=== PATIENT | female | born 1990 | race Caucasian/White ===

== ENCOUNTER 2017-04-04 11:04 | Emergency (ER) | payer OTHER ==
[~2017-04-04 11:04] MED LIST: DOXY100T PO; SULF1TAB24 PO
[2017-04-04] MEDS ORDERED: IV NORMAL SALINE 1,000ML 1,000 ML IV SCH (11:59)
[2017-04-04 12:25] LABS: COLOR,URINE YELLOW
[2017-04-04 12:26] LABS: BACTERIA,URINE MANY /HPF (0-FEW); BARBITURATES NEG (NEG); BENZODIAZEPINES NEG (NEG); BILIRUBIN,URINE NEG (NEG); CANNABINOIDS NEG (NEG); CLARITY,URINE HAZY; COCAINE NEG (NEG); GLUCOSE,URINE NEG (NEG); METHADONE NEG (NEG); NITRITE,URINE NEG (NEG); OPIATES NEG (NEG); PHENCYCLIDINE NEG (NEG); RBC,URINE 0 /HPF (0-2); UROBILINOGEN,URINE 0.2 mg/dL (0.2 mg/dL); WBC,URINE >40 /HPF (0-4)
[2017-04-04 12:27] LABS: AMPHETAMINE/METHAMPHETAMINE NEG (NEG); SQUAMOUS EPITHELIAL CELL,UR MOD /LPF
[2017-04-04] MEDS ORDERED: KETOROLAC 30 MG/ML VIAL. IV ONE (12:30)
--- NOTE | 2017-04-04 12:32 | RAD ---
CT of the abdomen and pelvis without contrast, 04/04/2017: History: Right-sided pain, previous ovarian cyst Noncontrast scans were obtained as requested. The unopacified liver is unremarkable. No gallbladder abnormality is seen. The pancreas shows no abnormality. The spleen is of normal size. The unopacified kidneys show no abnormality. No adrenal abnormality is detected. The uterus and ovaries are unremarkable. Small retroperitoneal and mesenteric lymph nodes are seen without definite pathologic enlargement. No pelvic adenopathy is seen. The bowel loops are not dilated. The appendix is visualized and shows no abnormality. No free fluid or free air is evident in the abdomen or pelvis. IMPRESSION: No acute abdominal or pelvic abnormality is detected. PQRS Compliance Statement: One or more of the following individualized dose reduction techniques were utilized for this examination: 1. Automated exposure control 2. Adjustment of the mA and/or kV according to patient size 3. Use of iterative reconstruction technique
--- NOTE | 2017-04-04 12:44 | PHYS DOC ---
General Chief Complaint: ABDOMINAL PAIN Stated Complaint: ABD PAIN Time Seen by MD: 11:32 Source: patient Exam Limitations: no limitations Problems: History of Present Illness Initial Comments Patient is a 26-year-old female who comes to the ED complaining of right-sided abdominal pain. Patient states that for the past 2 days she has had worsening right sided/right lower quadrant abdominal pain. She says she has history of right-sided ovarian cyst which had to be removed. She describes mild diarrhea for the past 2 days, 4 watery stools yesterday and 2 this morning. She seen no blood in her stools she's had some nausea but no vomiting. She complains of right sided and right lower quadrant abdominal pain 10 out of 10 described as sharp and stabby no exacerbating or alleviating factors are known. Patient has had decreased appetite and says she has had nothing to eat today. She's had no fever chills sweats or myalgias. She said she had a doctor appointment scheduled for 3 PM today but felt too bad to wait that long so she decided to come in. On ED arrival patient is afebrile 98.5, 62, 16, 116/72, 95% on room air. The patient appears to be waiting patiently and comfortably without pained expression. Timing/Duration: 24 hours Severity: severe Modifying Factors: improves with other Associated Symptoms: loss of appetite, malaise, other Allergies: Coded Allergies: morphine (Verified Allergy, Intermediate, gi problems, 05/31/14) hydrocodone (Verified Adverse Reaction, Intermediate, gi problems, HIVES, 05/25/15) Past Medical History Medical History: other (right-sided ovarian cyst) Surgical History: other (ovarian cyst) Family History Significant Family History: no pertinent family hx Social History Smoker: cigarettes Alcohol: occasionally Drugs: none Review of Systems Constitutional: denies chills, denies diaphoresis, denies fever, denies malaise Respiratory: denies cough, denies shortness of breath Cardiovascular: denies chest pain, denies palpitations Gastrointestinal: see HPI, abdominal pain, denies constipation, diarrhea, denies nausea, denies vomiting Genitourinary: see HPI Musculoskeletal: denies back pain, denies joint swelling, denies neck pain Psychiatric/Neurological: denies headache, denies numbness, denies paresthesia Physical Exam General Appearance: no apparent distress, obese Eyes: bilateral eye normal inspection, bilateral eye PERRL, bilateral eye EOMI Ear, Nose, Throat: hearing grossly normal, normal ENT inspection Neck: non-tender, supple Respiratory: normal breath sounds, no respiratory distress Cardiovascular: normal peripheral pulses, regular rate, rhythm Gastrointestinal: soft (right lower quadrant tenderness to palpation no rebound guarding or palpable masses, negative McBurney bowel sounds are normal) Rectal: deferred Back: no CVA tenderness, no vertebral tenderness Extremities: non-tender, normal inspection Neurologic/Psychiatric: medical practice manager II-XII nml as tested, no motor/sensory deficits, alert, normal mood/affect, oriented x 3 Skin: normal color, warm/dry Orders, Labs, Meds PATIENT: FORTINO BOWEN ACCOUNT: [id number] : 1990 LOCATION: ER AGE: 26 SEX: F EXAM STATUS: PRE ER ORD. PHYSICIAN: QUIRINO DOS SANTOS DO REASON: RLQ pain, anorexia, h/o ovarian cyst PROCEDURE: CT ABDOMEN PELVIS WO CONTRAST CT of the abdomen and pelvis without contrast, 04/04/2017: History: Right-sided pain, previous ovarian cyst Noncontrast scans were obtained as requested. The unopacified liver is unremarkable. No gallbladder abnormality is seen. The pancreas shows no abnormality. The spleen is of normal size. The unopacified kidneys show no abnormality. No adrenal abnormality is detected. The uterus and ovaries are unremarkable. Small retroperitoneal and mesenteric lymph nodes are seen without definite pathologic enlargement. No pelvic adenopathy is seen. The bowel loops are not dilated. The appendix is visualized and shows no abnormality. No free fluid or free air is evident in the abdomen or pelvis. IMPRESSION: No acute abdominal or pelvic abnormality is detected. PQRS Compliance Statement: One or more of the following individualized dose reduction techniques were utilized for this examination: 1. Automated exposure control 2. Adjustment of the mA and/or kV according to patient size 3. Use of iterative reconstruction technique DICTATED AND SIGNED BY: NICOLE HIDALGO MD DATE: 04/04/17 1224 CC: PCP,NO; QUIRINO DOS SANTOS DO ~ 1242: CT is resulted and normal. Urinalysis with squamous epithelial contamination but is convincing with greater than 40 white blood cells and moderate leukocyte esterase. 1252: Time in the department 1 hour 49 minutes. No labs are resulted or yet to be submitted to the lab, patient will likely have prolonged ED course due to laboratory delay. 1332: The remainder of her labs are unremarkable. 26-year-old female with right -sided abdominal pain normal vital signs unremarkable laboratory and CT evaluation. Positive findings include urinary tract infection will treat as such see departure. Departure Time of Disposition: 13:33 Disposition: 01 HOME, SELF-CARE Diagnosis: urinary tract infection, abdominal discomfort, tob Condition: GOOD Patient Instructions: Smoking Cessation, Urinary Tract Infection, [id number] Additional Instructions: Your emergency department workup was overall reassuring. CT evaluation of the abdomen and pelvis revealed no acute abnormal findings. Lab studies were reassuring urinalysis contained products of infection. Your abdominal discomfort is likely related multi-factorial in nature resulting from both urinary tract infection and probable viral gastroenteritis. Off work through April 07. Rest activity as tolerated. Stop smoking, seek medical assistance if necessary. Aggressive hydration with Gatorade or water. [id number] Tylenol and/or ibuprofen as needed. Prescription: doxycycline, pyridium, dicyclomine, take as directed. Follow up with your doctor in 10-14 days for recheck and urine culture results. Return to the ED with new or changing symptoms. QUIRINO DOS SANTOS DO Apr 04, 2017 12:43
[2017-04-04 13:11] LABS: BASO # 0.1 x10^3/uL (0.0-0.2); BASO % 1 % (0-3); EOS # 0.3 x10^3/uL (0.0-0.7); EOS % 3 % (0-3); HEMATOCRIT 42.6 % (36.0-47.0); HEMOGLOBIN 14.1 g/dL (12.0-15.5); LYMPH # 3.2 x10^3/uL (1.0-4.8); LYMPH % 34 % (24-48); MEAN CORPUSCULAR HEMOGLOBIN 28 pg (25-35); MEAN CORPUSCULAR HGB CONC 33 g/dL (31-37); MEAN CORPUSCULAR VOLUME 85 fL (79-100); MONO # 0.6 x10^3/uL (0.0-1.1); MONO % 6 % (0-9); NEUT # 5.5 x10^3uL (1.8-7.7); NEUT % 57 % (31-73); PLATELET COUNT 352 x10^3/uL (140-400); RED CELL DISTRIBUTION WIDTH 14.4 % (11.5-14.5); WHITE BLOOD COUNT 9.6 x10^3/uL (4.0-11.0)
[2017-04-04 13:26] LABS: ALBUMIN 3.4 g/dL (3.4-5.0); ALBUMIN/GLOBULIN RATIO 0.8 (1.0-1.7); CALCIUM 8.6 mg/dL (8.5-10.1); CREATININE 0.8 mg/dL (0.6-1.0); GFR 87.4; POTASSIUM 3.9 mmol/L (3.5-5.1); TOTAL BILIRUBIN 0.5 mg/dL (0.2-1.0); TOTAL PROTEIN 7.5 g/dL (6.4-8.2)
[2017-04-04 13:50] VITALS: BP 130/97
== END 2017-04-04 13:50 | disposition home or self-care (01) ==
LOC: ER 11:04
DX: N39.0 Urinary tract infection, site not specified (principal); F17.210 Nicotine dependence, cigarettes, uncomplicated; Z88.5 Allergy status to narcotic agent; Z88.6 Allergy status to analgesic agent
CPT/HCPCS: 36415; 74176; 80053; 80305; 80320; 81001; 81025; 83690; 85027; 87086; 96361; 96374; 99285; J1885; G0481; J7030

== ENCOUNTER 2017-05-16 04:10 | Emergency (ER) | payer OTHER ==
[~2017-05-16] VITALS: Ht 162.6 cm; Wt 117.9 kg
[2017-05-16 04:10] VITALS: BP 109/64
--- NOTE | 2017-05-16 04:34 | PHYS DOC ---
Past History Past Medical History: UTI Past Surgical History: , Other Smoking: Cigarettes Alcohol Use: Occasionally Drug Use: None Adult General Chief Complaint Chief Complaint: SORE THROAT HPI HPI Patient is a 26 year old female who presents with sore throat. Started yesterday. Father was diagnosed with strep throat yesterday. She has pain with swallowing; no drooling. No fever. No travel. No cough. Bite to her right wrist that is now red and painful. No streaking. Review of Systems Review of Systems Constitutional: Denies fever or chills Eyes: Denies change in visual acuity, redness, or eye pain HENT: Denies nasal congestion. Positive sore throat Respiratory: Denies cough or shortness of breath GI: Denies abdominal pain, nausea, vomiting, bloody stools or diarrhea Integument: Denies rash or skin lesions. Bite to right wrist. Neurologic: Denies headache, focal weakness or sensory changes Allergies Allergies Allergies Coded Allergies Type Severity Reaction Last Updated Verified morphine Allergy Intermediate gi problems 05/31/14 Yes hydrocodone Adverse Reaction Intermediate gi problems, HIVES 05/25/15 Yes Physical Exam Physical Exam Constitutional: Well developed, well nourished, no acute distress, non-toxic appearance. HENT: Normocephalic, atraumatic, bilateral external ears normal, oropharynx moist, nose normal. Posterior pharynx erythematous; no drooling. Eyes: PERRLA, EOMI, conjunctiva normal, no discharge. Neck: Normal range of motion, no tenderness, supple, no stridor. Cardiovascular:Heart rate regular rhythm, no murmur Lungs & Thorax: Bilateral breath sounds clear to auscultation Abdomen: Bowel sounds normal, soft, no tenderness, no masses, no pulsatile masses. Skin: Warm, dry, no erythema, no rash. Small red raised lesion to right wrist. No lymphangitis. No fluctuance. Extremities: No tenderness, no cyanosis, no clubbing, ROM intact, no edema. Neurologic: Alert and oriented X 3, normal motor function, normal sensory function, no focal deficits noted. Current Patient Data Vital Signs Reviewed Course & Med Decision Making Course & Med Decision Making Due to exposure and tonsillar erythema and enlargement will treat. Dosed with amoxicillin here. Dragon Disclaimer Dragon Disclaimer This chart was dictated in whole or in part using Voice Recognition software in a busy, high-work load, and often noisy Emergency Department environment. It may contain unintended and wholly unrecognized errors or omissions. Departure Departure: Impression: Primary Impression: Pharyngitis, acute Disposition: 01 HOME, SELF-CARE Condition: GOOD Referrals: PCP,NO (PCP) Patient Instructions: Sore Throat Scripts Methylprednisolone (MEDROL) 4 Mg Tab.ds.pk 1 PKG PO UD, #1 PKG Prov: JOSE TANNER MD 05/16/17 Amoxicillin (AMOXICILLIN) 500 Mg Capsule 1 CAP PO TID, #30 CAP Prov: JOSE TANNER MD 05/16/17 JOSE TANNER MD May 16, 2017 04:34
[2017-05-16] MEDS ORDERED: METH4TAB2 PO (04:42)
[2017-05-16] MEDS ORDERED: AMOX500C PO (04:42)
[2017-05-16] MEDS ORDERED: AMOXICILLIN 500 MG CAPSULE PO ONE (05:00)
== END 2017-05-16 04:54 | disposition home or self-care (01) ==
LOC: ER 04:10
DX: J02.9 Acute pharyngitis, unspecified (principal); F17.210 Nicotine dependence, cigarettes, uncomplicated; Z87.440 Personal history of urinary (tract) infections; Z88.5 Allergy status to narcotic agent
CPT/HCPCS: 99283

== ENCOUNTER → 2017-07-14 | Outpatient (CLI) | payer OTHER ==
[~2017-07-14] MED LIST changes: +AMOX500C PO; +METH4TAB2 PO
--- NOTE | 2017-07-14 15:38 | RAD ---
Indication acute shoulder pain. No history of injury. Internally and externally rotated views of the right shoulder as well as a Y view were obtained. No bony abnormality is seen
== END | disposition home or self-care (01) ==
LOC: DXRADRC 15:22
PROVIDERS: ATTEND Nurse Practitioner Family
DX: M25.512 Pain in left shoulder (principal)
CPT/HCPCS: 73030

== ENCOUNTER → 2017-11-19 | Outpatient (CLI) | payer OTHER ==
--- NOTE | 2017-11-19 14:27 | RAD ---
Left shoulder, 3 views, 11/19/2017: History: Shoulder pain, injury No fracture or dislocation is identified. No significant arthritic change is seen. IMPRESSION: No acute left shoulder abnormality is detected.
== END | disposition home or self-care (01) ==
LOC: PMG 12:26
PROVIDERS: ATTEND Physician Assistant
DX: M25.512 Pain in left shoulder (principal)
CPT/HCPCS: 73030

== ENCOUNTER 2017-12-10 18:39 | Emergency (ER) | payer OTHER ==
[~2017-12-10] VITALS: Ht 162.6 cm; Wt 117.9 kg
--- NOTE | 2017-12-10 19:33 | PHYS DOC ---
Past History Past Medical History: Ovarian Cyst Past Surgical History: Smoking: Cigarettes Alcohol Use: Occasionally Drug Use: None Adult General Chief Complaint Chief Complaint: ANKLE PROBLEM HPI HPI 27-year-old female patient states she lost her balance and fell from 3 stairs and twisted her right ankle outward was able to bear weight. Patient rated her pain 8/10 in medial and lateral malleolus and denies other injuries and loss of consciousness or focal neuro deficit. And does not want to have pain medication in ER. Review of Systems Review of Systems Constitutional: Denies fever or chills [] Eyes: Denies change in visual acuity, redness, or eye pain [] HENT: Denies nasal congestion or sore throat [] Respiratory: Denies cough or shortness of breath [] Cardiovascular: No additional information not addressed in HPI [] GI: Denies abdominal pain, nausea, vomiting, bloody stools or diarrhea [] : Denies dysuria or hematuria [] Musculoskeletal: Denies back pain , reports joint pain [] Integument: Denies rash or skin lesions [] Neurologic: Denies headache, focal weakness or sensory changes [] Endocrine: Denies polyuria or polydipsia [] All other systems were reviewed and found to be within normal limits, except as documented in this note. Allergies Allergies Allergies Coded Allergies Type Severity Reaction Last Updated Verified morphine Allergy Intermediate gi problems 05/31/14 Yes hydrocodone Adverse Reaction Intermediate gi problems, HIVES 05/25/15 Yes Physical Exam Physical Exam Constitutional: Well developed, well nourished, mild stress, non-toxic appearance. [] HENT: Normocephalic, atraumatic, bilateral external ears normal, oropharynx moist, no oral exudates, nose normal. [] Eyes: PERRLA, EOMI, conjunctiva normal, no discharge. [] Neck: Normal range of motion, no tenderness, supple, no stridor. [] Cardiovascular:Heart rate regular rhythm, no murmur [] Lungs & Thorax: Bilateral breath sounds clear to auscultation [] Back: No tenderness, no CVA tenderness. [] Extremities: Right ankle with no deformity, mild edema and tenderness in medial and lateral malleolus Neurologic: Alert and oriented X 3, normal motor function, normal sensory function, no focal deficits noted. [] Psychologic: Affect normal, judgement normal, mood normal. [] EKG EKG [] Radiology/Procedures Radiology/Procedures [] Course & Med Decision Making Course & Med Decision Making Pertinent Imaging studies reviewed. (See chart for details) Evaluation of patient in ER showed 27-year-old female patient with injury to right ankle without fracture. Plan to apply [place] wrap and gel cast and instruction to elevate her lower extremity. I've spoken with the patient and/or caregivers. I've explained the patient's condition, diagnosis and treatment plan based on information available to me at this time. I've answered the patient's and/or caregivers questions and addressed any concerns. The patient and/or caregivers have a good understanding the patient's diagnosis, condition and treatment plan as can be expected at this point. Vital signs have been stabilized. The patient's condition is stable for discharge from the emergency department. The patient will pursue further outpatient evaluation with her primary care provider or other designated consulting physician as outlined in the discharge instructions. Patient and/or caregivers are agreeable to this plan of care and follow-up instructions have been explained in detail. The patient and/or caregivers have received these instructions in written format and expressed understanding of these discharge instructions. The patient and her caregivers are aware that if any significant change in condition or worsening of symptoms should prompt him to immediately return to this of the closest emergency department. If an emergent department is not readily available I would encourage him to call 911.[] Dragon Disclaimer Dragon Disclaimer This electronic medical record was generated, in whole or in part, using a voice recognition dictation system. Departure Departure: Impression: Primary Impression: Right ankle sprain Additional Impressions: Tobacco abuse Tobacco abuse counseling Disposition: HOME, SELF-CARE (At 1950) Condition: STABLE Referrals: LOUIS MCALLISTER (PCP) Patient Instructions: Ankle Sprain, Smoking Cessation, Tips For Success Additional Instructions: Apply ice unaffected area Follow-up with your primary care physician in 3-5 days Return to ER if not getting better Scripts Ibuprofen (IBUPROFEN) 800 Mg Tablet 1 TAB PO TID, #30 TAB Prov: MINDY LANGSTON MD 12/10/17 Tramadol Hcl (ULTRAM) 50 Mg Tablet 50 MG PO PRN Q6HRS Y for PAIN, #14 TAB Prov: MINDY LANGSTON MD 12/10/17 Problem Qualifiers MINDY LANGSTON MD Dec 10, 2017 19:33
[2017-12-10] MEDS ORDERED: TRAM-48 PO (19:53)
[2017-12-10] MEDS ORDERED: IBUP800T19 PO (19:53)
[2017-12-10 20:15] VITALS: BP 103/79
--- NOTE | 2017-12-11 08:01 | RAD ---
3 views right ankle 12/10/2017 9:01 PM Indication: Right ankle injury following fall . Acute pain Comparison: None Findings: There is no fracture or dislocation identified. Articular surfaces are uninterrupted. Soft tissue edema surrounding the ankle appears to be present. Impression: No evidence of acute osseous abnormality
== END 2017-12-10 20:16 | disposition home or self-care (01) ==
LOC: ER 18:39
DX: S93.401A Sprain of unspecified ligament of right ankle, initial encounter (principal); W10.8XXA Fall (on) (from) other stairs and steps, initial encounter; Y93.89 Activity, other specified; Y99.8 Other external cause status; Y92.89 Other specified places as the place of occurrence of the external cause
CPT/HCPCS: 29515; 73610; 99284

== ENCOUNTER 2018-03-10 11:18 | Emergency (ER) | payer OTHER ==
[~2018-03-10] VITALS: Ht 162.6 cm; Wt 130.0 kg
[~2018-03-10 11:18] MED LIST changes: +IBUP800T19 PO; +TRAM-48 PO
[2018-03-10] MEDS ORDERED: IV NORMAL SALINE 1,000ML 1,000 ML IV SCH (11:34)
[2018-03-10] MEDS ORDERED: 0.9 % SODIUM CHLORIDE 10 ML DISP.SYRIN. IV PRN (11:45)
[2018-03-10] MEDS ORDERED: PROCHLORPERAZINE 10 MG/2 ML VIAL. IV ONE (12:00)
[2018-03-10] MEDS ORDERED: KETOROLAC 30 MG/ML VIAL. IV ONE (12:30)
[2018-03-10 12:37] LABS: BASO % 0 % (0-3); EOS # 0.4 x10^3/uL (0.0-0.7); EOS % 3 % (0-3); HEMATOCRIT 44.9 % (36.0-47.0); LYMPH # 1.4 x10^3/uL (1.0-4.8); LYMPH % 9 % (24-48); MEAN CORPUSCULAR HEMOGLOBIN 29 pg (25-35); MEAN CORPUSCULAR HGB CONC 33 g/dL (31-37); MEAN CORPUSCULAR VOLUME 86 fL (79-100); MONO # 0.9 x10^3/uL (0.0-1.1); MONO % 6 % (0-9); NEUT # 12.7 x10^3uL (1.8-7.7); NEUT % 83 % (31-73); PLATELET COUNT 388 x10^3/uL (140-400); RED BLOOD COUNT 5.23 x10^6/uL (3.50-5.40); RED CELL DISTRIBUTION WIDTH 13.8 % (11.5-14.5); WHITE BLOOD COUNT 15.4 x10^3/uL (4.0-11.0)
--- NOTE | 2018-03-10 12:49 | PHYS DOC ---
Past History Past Medical History: No Pertinent History Past Surgical History: Smoking: Cigarettes Additional Smoking Information: decreased from pack per day to 3 smokes per day Alcohol Use: None Drug Use: None Adult General Chief Complaint Chief Complaint: NAUSEA/VOMITING/[facility] HPI 27-year-old female patient complaining of episodes of nausea and vomiting and diarrhea for the last 10 days with lower abdominal pain. Patient stated she had more than 10 episodes of nonbloody diarrhea yesterday and several episodes of dry hives and a few episodes of vomiting. Patient complaining of lower abdominal cramping pain without radiation as a constant pain and rated her pain 9/10. Patient states she had sick contacts at home. Patient denies urinary symptoms, vaginal bleeding, , fever and chills. Review of Systems Review of Systems Constitutional: Denies fever or chills [] Eyes: Denies change in visual acuity, redness, or eye pain [] HENT: Denies nasal congestion or sore throat [] Respiratory: Denies cough or shortness of breath [] Cardiovascular: No additional information not addressed in HPI [] GI: Reports abdominal pain, nausea, vomiting, diarrhea [] : Denies dysuria or hematuria [] Musculoskeletal: Denies back pain or joint pain [] Integument: Denies rash or skin lesions [] Neurologic: Denies headache, focal weakness or sensory changes [] Endocrine: Denies polyuria or polydipsia [] All other systems were reviewed and found to be within normal limits, except as documented in this note. Current Medications Current Medications Current Medications Medications (Trade) Dose Ordered Sig/Rekha Start Time Stop Time Status Last Admin Dose Admin Ketorolac Tromethamine (Toradol) 30 mg 1X ONCE 03/10/18 12:30 03/10/18 12:31 DC Prochlorperazine Edisylate (Compazine) 10 mg 1X ONCE 03/10/18 12:00 03/10/18 12:01 DC Sodium Chloride (Normal Saline Flush) 10 ml QSHIFT PRN 03/10/18 11:45 Allergies Allergies Allergies Coded Allergies Type Severity Reaction Last Updated Verified morphine Allergy Intermediate gi problems 05/31/14 Yes hydrocodone Adverse Reaction Intermediate gi problems, HIVES 05/25/15 Yes Physical Exam Physical Exam Constitutional: Well developed, well nourished, mild distress, non-toxic appearance. [] HENT: Normocephalic, atraumatic, oropharynx moist Eyes: PERRLA, EOMI, conjunctiva normal, no discharge. [] Neck: Normal range of motion, no tenderness, supple, no stridor. [] Cardiovascular:Heart rate regular rhythm, no murmur [] Lungs & Thorax: Bilateral breath sounds clear to auscultation [] Abdomen: Bowel sounds normal, soft, no tenderness, no masses, lower abdominal guarding, no pulsatile masses. [] Skin: Warm, dry, no erythema, no rash. [] Back: No tenderness, no CVA tenderness. [] Extremities: No tenderness, no cyanosis, no clubbing, ROM intact, no edema. [] Neurologic: Alert and oriented X 3, normal motor function, normal sensory function, no focal deficits noted. [] Psychologic: Affect normal, judgement normal, mood normal. [] Current Patient Data Vital Signs Vital Signs Date Time Temp Pulse Resp B/P (MAP) Pulse Ox O2 Delivery O2 Flow Rate FiO2 03/10/18 11:25 98.3 99 16 98 Room Air Lab Results Laboratory Tests Test 03/10/18 12:25 White Blood Count 15.4 x10^3/uL (4.0-11.0) H Red Blood Count 5.23 x10^6/uL (3.50-5.40) Hemoglobin 15.0 g/dL (12.0-15.5) Hematocrit 44.9 % (36.0-47.0) Mean Corpuscular Volume 86 fL (79-100) Mean Corpuscular Hemoglobin 29 pg (25-35) Mean Corpuscular Hemoglobin Concent 33 g/dL (31-37) Red Cell Distribution Width 13.8 % (11.5-14.5) Platelet Count 388 x10^3/uL (140-400) Neutrophils (%) (Auto) 83 % (31-73) H Lymphocytes (%) (Auto) 9 % (24-48) L Monocytes (%) (Auto) 6 % (0-9) Eosinophils (%) (Auto) 3 % (0-3) Basophils (%) (Auto) 0 % (0-3) Neutrophils # (Auto) 12.7 x10^3uL (1.8-7.7) H Lymphocytes # (Auto) 1.4 x10^3/uL (1.0-4.8) Monocytes # (Auto) 0.9 x10^3/uL (0.0-1.1) Eosinophils # (Auto) 0.4 x10^3/uL (0.0-0.7) Basophils # (Auto) 0.0 x10^3/uL (0.0-0.2) Platelet Estimate Pending EKG EKG [] Radiology/Procedures Radiology/Procedures [][address] [address] IMAGING REPORT Signed PATIENT: FORTINO BOWEN ACCOUNT: [id number] : 1990 LOCATION: ER AGE: 27 SEX: F EXAM STATUS: REG ER ORD. PHYSICIAN: MINDY LANGSTON MD REASON: nausea,vomiting and abdominal pain PROCEDURE: ABDOMEN LTD LIMITED ABDOMINAL ULTRASOUND History: Nausea, vomiting, abdominal pain. Comparison: CT abdomen pelvis April 04, 2017. Procedure: Transabdominal ultrasound images are obtained. Findings: Visualized pancreas is unremarkable. Liver is increased in echogenicity. No focal hepatic masses are identified. Right hepatic lobe measures 18.4 cm in length. Gallbladder has an unremarkable appearance. Common bile duct measures normally at 4 mm in diameter. Right kidney measures 10.0 cm in length. There is no evidence of stone or hydronephrosis. Visualized IVC demonstrates normal caliber. Impression: 1. Echogenic, enlarged liver, compatible with fatty liver disease. 2. Otherwise, unremarkable right upper quadrant ultrasound. Electronically signed by: Harsh Chaudhry MD (03/10/2018 1:41 PM) [place] [id number] DICTATED AND SIGNED BY: HARSH CHAUDHRY MD DATE: 03/10/18 1336 CC: MINDY LANGSTON MD; LOUIS MCALLISTER ~ [address] [address] IMAGING REPORT Signed PATIENT: FORTINO BOWEN ACCOUNT: [id number] : 1990 LOCATION: ER AGE: 27 SEX: F EXAM STATUS: REG ER ORD. PHYSICIAN: MINDY LANGSTON MD REASON: nausea and vomiting and diarrhea, abdominal pain, leukocytosis PROCEDURE: CT ABD PELV W/ IV CONTRST ONLY CT ABD PELV W/ IV CONTRST ONLY Indication: Omni 300, 75ml IV. N/V/D, abd pain, leukocytosis. Hx Exposure: One or more of the following individualized dose reduction techniques were utilized for this examination: 1. Automated exposure control 2. Adjustment of the mA and/or kV according to patient size 3. Use of iterative reconstruction technique. Comparison: April 04, 2017 Contrast: Intravenous contrast. No oral contrast per request. Lower thorax: Lung bases are clear. Pneumoperitoneum:No gross pneumoperitoneum. Liver: Unremarkable Spleen: Unremarkable Pancreas: Unremarkable Adrenals:No evidence of mass. Kidneys:Unremarkable Gallbladder: No calcified stone Aorta: Abdominal aorta is nonaneurysmal Lymph nodes: Small retroperitoneal, mesenteric and inguinal lymph nodes are identified, similar to the prior study. GI tract: No bowel obstruction. Appendix is normal. No acute colitis. Ascites: No gross ascites. Urinary bladder: Not opacified, but no apparent abnormality. No evidence of pelvic mass. Bones: Chronic and degenerative changes of the spine are redemonstrated. IMPRESSION: No acute findings in the abdomen or pelvis. Electronically signed by: Harsh Flood MD (03/10/2018 2:54 PM) [id number] DICTATED AND SIGNED BY: HARSH FLOOD MD DATE: 03/10/18 1445 CC: MINDY LANGSTON MD; LOUIS MCALLISTER ~ Course & Med Decision Making Course & Med Decision Making Pertinent Labs and Imaging studies reviewed. (See chart for details) Evaluation of patient in ER showed 27-year-old female patient with complaining of intermittent episodes of nausea and vomiting and diarrhea and lower abdominal pain for 10 days. Patient had unremarkable physical exam except for lower abdominal mild guarding. Labs was unremarkable except for white count of 15,000. Gallbladder ultrasound and CT of abdomen and pelvis was unremarkable except for fatty liver. Patient felt better after treatment in ER. Plan discharge patient home to diagnose of acute gastroenteritis. [] Dragon Disclaimer Dragon Disclaimer This electronic medical record was generated, in whole or in part, using a voice recognition dictation system. Departure Departure: Impression: Primary Impression: Gastroenteritis Additional Impressions: Tobacco abuse Tobacco abuse counseling Fatty liver Disposition: HOME, SELF-CARE (At 1511) Condition: IMPROVED Referrals: LOUIS MCALLISTER (PCP) Patient Instructions: Diarrhea, Diet for Diarrhea, Adult, Smoking Cessation Additional Instructions: Drink plenty of liquids Follow-up with your primary care physician in 3-5 days Return to ER if not getting better Scripts Ondansetron (ZOFRAN ODT) 4 Mg Tab.rapdis 1 TAB SL Q8HRS, #15 TAB Prov: MINDY LANGSTON MD 03/10/18 Sulfamethoxazole/Trimethoprim (BACTRIM DS TABLET) 1 Each Tablet 1 TAB PO BID, #14 TAB Prov: MINDY LANGSTON MD 03/10/18 Problem Qualifiers MINDY LANGSTON MD March 10, 2018 12:49
[2018-03-10 13:05] LABS: % BANDS 5 % (0-9); % EOS 2 % (0-5); % LYMPHS 14 % (24-48); % METAS 2 % (0-0); % MONOS 3 % (0-10); % SEGS 73 % (35-66); PLT ESTIMATE INCREASED (ADEQUATE)
[2018-03-10 13:07] LABS: TOXIC GRANULATION PRESENT; TOXIC VACUOLATION PRESENT
[2018-03-10 13:12] LABS: BILIRUBIN,URINE NEG (NEG); CLARITY,URINE CLOUDY; COLOR,URINE YELLOW; GLUCOSE,URINE NEG (NEG)
[2018-03-10 13:13] LABS: BACTERIA,URINE MOD /HPF (0-FEW); NITRITE,URINE NEG (NEG); RBC,URINE RARE /HPF (0-2); SQUAMOUS EPITHELIAL CELL,UR MOD /LPF; UROBILINOGEN,URINE 0.2 mg/dL (0.2 mg/dL); WBC,URINE OCC /HPF (0-4)
[2018-03-10 13:26] LABS: ALBUMIN 3.7 g/dL (3.4-5.0); ALBUMIN/GLOBULIN RATIO 0.8 (1.0-1.7); CALCIUM 8.9 mg/dL (8.5-10.1); CREATININE 0.9 mg/dL (0.6-1.0); GFR 75.7; POTASSIUM 3.7 mmol/L (3.5-5.1); TOTAL BILIRUBIN 0.8 mg/dL (0.2-1.0); TOTAL PROTEIN 8.1 g/dL (6.4-8.2)
--- NOTE | 2018-03-10 13:44 | RAD ---
LIMITED ABDOMINAL ULTRASOUND History: Nausea, vomiting, abdominal pain. Comparison: CT abdomen pelvis April 04, 2017. Procedure: Transabdominal ultrasound images are obtained. Findings: Visualized pancreas is unremarkable. Liver is increased in echogenicity. No focal hepatic masses are identified. Right hepatic lobe measures 18.4 cm in length. Gallbladder has an unremarkable appearance. Common bile duct measures normally at 4 mm in diameter. Right kidney measures 10.0 cm in length. There is no evidence of stone or hydronephrosis. Visualized IVC demonstrates normal caliber. Impression: 1. Echogenic, enlarged liver, compatible with fatty liver disease. 2. Otherwise, unremarkable right upper quadrant ultrasound. Electronically signed by: Harsh Brown MD (03/10/2018 1:41 PM) [place] [id number]
[2018-03-10] MEDS ORDERED: IOHEXOL 300 MG/ML 75 ML VIAL. IV ONE (14:30)
--- NOTE | 2018-03-10 14:57 | RAD ---
CT ABD PELV W/ IV CONTRST ONLY Indication: Omni 300, 75ml IV. N/V/D, abd pain, leukocytosis. Hx Exposure: One or more of the following individualized dose reduction techniques were utilized for this examination: 1. Automated exposure control 2. Adjustment of the mA and/or kV according to patient size 3. Use of iterative reconstruction technique. Comparison: April 04, 2017 Contrast: Intravenous contrast. No oral contrast per request. Lower thorax: Lung bases are clear. Pneumoperitoneum:No gross pneumoperitoneum. Liver: Unremarkable Spleen: Unremarkable Pancreas: Unremarkable Adrenals:No evidence of mass. Kidneys:Unremarkable Gallbladder: No calcified stone Aorta: Abdominal aorta is nonaneurysmal Lymph nodes: Small retroperitoneal, mesenteric and inguinal lymph nodes are identified, similar to the prior study. GI tract: No bowel obstruction. Appendix is normal. No acute colitis. Ascites: No gross ascites. Urinary bladder: Not opacified, but no apparent abnormality. No evidence of pelvic mass. Bones: Chronic and degenerative changes of the spine are redemonstrated. IMPRESSION: No acute findings in the abdomen or pelvis. Electronically signed by: Harsh Flood MD (03/10/2018 2:54 PM) [facility]
[2018-03-10] MEDS ORDERED: SULF1TAB24 PO (15:14)
[2018-03-10] MEDS ORDERED: ONDA4TAB10 SL (15:14)
[2018-03-10 15:26] VITALS: BP 133/74
== END 2018-03-10 15:33 | disposition home or self-care (01) ==
LOC: ER 11:18
DX: K52.9 Noninfective gastroenteritis and colitis, unspecified (principal); K76.0 Fatty (change of) liver, not elsewhere classified; F17.210 Nicotine dependence, cigarettes, uncomplicated; Z71.6 Tobacco abuse counseling; Z98.890 Other specified postprocedural states; Z88.5 Allergy status to narcotic agent
CPT/HCPCS: 36415; 74177; 76705; 80053; 81001; 81025; 83690; 85007; 85025; 87086; 96361; 96374; 96375; 99285; J0780; J1885; Q9967; J7030

== ENCOUNTER 2019-07-04 12:13 | Emergency (ER) | payer SELFPAY ==
[~2019-07-04] VITALS: Ht 162.6 cm; Wt 129.3 kg
[2019-07-04 12:13] VITALS: BP 131/74
[~2019-07-04 12:13] MED LIST changes: +ONDA4TAB10 SL
[2019-07-04] MEDS ORDERED: ALBU2.5V8 INH (12:34)
[2019-07-04] MEDS ORDERED: AZIT250T6 PO (12:34)
[2019-07-04] MEDS ORDERED: BENZ100C PO (12:34)
--- NOTE | 2019-07-04 12:38 | PHYS DOC ---
Past History Past Medical History: No Pertinent History Past Surgical History: Smoking: Cigarettes Alcohol Use: None Drug Use: None Adult General Chief Complaint Chief Complaint: COUGH HPI HPI Patient is a 28 yo f with cough ten days yellow sputum occasional blood tinged subj fever feeling worse feels hard to take deep breathe, goes into coughing fit no sharp pain feels tight when coughign Review of Systems Review of Systems Constitutional: Eyes: Denies change in visual acuity, redness, or eye pain [] HENT: Denies nasal congestion or sore throat [] Respiratory: Denies cough or shortness of breath [] Cardiovascular: : Denies dysuria or hematuria [] Neurologic: Denies headache, focal weakness or sensory changes [] Endocrine: Denies polyuria or polydipsia [] All other systems were reviewed and found to be within normal limits, except as documented in this note. Allergies Allergies Allergies Coded Allergies Type Severity Reaction Last Updated Verified morphine Allergy Intermediate gi problems 05/31/14 Yes hydrocodone Adverse Reaction Intermediate gi problems, HIVES 05/25/15 Yes Physical Exam Physical Exam Constitutional: Well developed, well nourished, no acute distress, non-toxic appearance. [] HENT: Normocephalic, atraumatic, bilateral external ears normal, oropharynx moist, no oral exudates, nose normal. [] Eyes: PERRLA, EOMI, conjunctiva normal, no discharge. [] Neck: Normal range of motion, no tenderness, supple, no stridor. [] Cardiovascular:Heart rate regular rhythm, no murmur [] Lungs & Thorax: Bilateral breath sounds clear to auscultation [] but reactive cough noted. Abdomen: Bowel sounds normal, soft, no tenderness, no masses, no pulsatile masses. [] Skin: Warm, dry, no erythema, no rash. [] Back: No tenderness, no CVA tenderness. Extremities: No tenderness, no cyanosis, no clubbing, ROM intact, no edema. [] Neurologic: Alert and oriented X 3, normal motor function, normal sensory function, no focal deficits noted. [] Psychologic: Affect normal, judgement normal, mood normal. [] Current Patient Data Vital Signs see nurses note bp 133, oxygenation normal EKG EKG [] Radiology/Procedures Radiology/Procedures [] Course & Med Decision Making Course & Med Decision Making Pertinent Labs and Imaging studies reviewed. (See chart for details) []lungs clear normal sat likely bronchitis Dragon Disclaimer Dragon Disclaimer This electronic medical record was generated, in whole or in part, using a voice recognition dictation system. Departure Departure: Impression: Primary Impression: Cough Disposition: HOME, SELF-CARE Condition: STABLE Patient Instructions: Cough, Adult, [id number] Scripts Albuterol Sulfate (PROAIR HFA INHALER) 8.5 Gm Hfa.aer.ad 1 PUFF INH PRN Q6HRS PRN for SHORTNESS OF BREATH, #1 INHALER 0 Refills Prov: NAIDA CONTRERAS MD 07/04/19 Benzonatate (TESSALON PERLE) 100 Mg Capsule 1 CAP PO TID PRN for COUGH, #21 CAP Prov: NAIDA CONTRERAS MD 07/04/19 Azithromycin (AZITHROMYCIN TABLET) 250 Mg Tablet 1 PKG PO UD for bronchti, #6 TAB Prov: NAIDA CONTRERAS MD 07/04/19 NAIDA CONTRERAS MD Jul 04, 2019 12:38
== END 2019-07-04 12:37 | disposition home or self-care (01) ==
LOC: ER 12:13
DX: R05 Cough (principal); R09.3 Abnormal sputum; R50.9 Fever, unspecified; F17.210 Nicotine dependence, cigarettes, uncomplicated; Z88.5 Allergy status to narcotic agent
CPT/HCPCS: 99283

== ENCOUNTER 2020-01-29 15:04 | Emergency (ER) | payer OTHER ==
[~2020-01-29] VITALS: Ht 162.6 cm; Wt 88.6 kg
[~2020-01-29 15:04] MED LIST changes: +ALBU2.5V8 INH; +AZIT250T6 PO; +BENZ100C PO
--- NOTE | 2020-01-29 16:38 | RAD ---
EXAM: Abdomen sonogram. HISTORY: Right upper quadrant pain. TECHNIQUE: Sonographic imaging of the abdomen was performed. COMPARISON: CT dated 03/10/2018. FINDINGS: The liver is enlarged. There is suspected mild hepatic steatosis. No focal hepatic lesion is seen. The bowel appears unremarkable. The common bile duct is normal in caliber. The right kidney, pancreas and inferior vena cava are unremarkable. IMPRESSION: 1. Hepatomegaly and suspected mild hepatic steatosis. 2. Otherwise, unremarkable abdomen sonogram. Electronically signed by: Promise Baptiste MD (01/29/2020 4:35 PM) [facility]
[2020-01-29 16:46] LABS: BASO # 0.1 x10^3/uL (0.0-0.2); BASO % 1 % (0-3); EOS # 0.4 x10^3/uL (0.0-0.7); EOS % 3 % (0-3); HEMATOCRIT 44.2 % (36.0-47.0); HEMOGLOBIN 14.4 g/dL (12.0-15.5); LYMPH # 3.3 x10^3/uL (1.0-4.8); LYMPH % 26 % (24-48); MEAN CORPUSCULAR HEMOGLOBIN 28 pg (25-35); MEAN CORPUSCULAR HGB CONC 33 g/dL (31-37); MEAN CORPUSCULAR VOLUME 87 fL (79-100); MONO # 0.6 x10^3/uL (0.0-1.1); MONO % 4 % (0-9); NEUT # 8.5 x10^3uL (1.8-7.7); NEUT % 66 % (31-73); PLATELET COUNT 483 x10^3/uL (140-400); RED BLOOD COUNT 5.09 x10^6/uL (3.50-5.40); RED CELL DISTRIBUTION WIDTH 14.4 % (11.5-14.5); WHITE BLOOD COUNT 12.8 x10^3/uL (4.0-11.0)
[2020-01-29 16:47] LABS: CALCIUM 8.9 mg/dL (8.5-10.1); CREATININE 0.8 mg/dL (0.6-1.0); GFR 85.4; POTASSIUM 3.9 mmol/L (3.5-5.1)
[2020-01-29 16:52] LABS: BILIRUBIN,URINE NEG (NEG); CLARITY,URINE CLOUDY; COLOR,URINE YELLOW; GLUCOSE,URINE NEG (NEG)
[2020-01-29 16:52] LABS: ALBUMIN 3.4 g/dL (3.4-5.0); ALBUMIN/GLOBULIN RATIO 0.8 (1.0-1.7); TOTAL BILIRUBIN 0.5 mg/dL (0.2-1.0); TOTAL PROTEIN 7.7 g/dL (6.4-8.2)
[2020-01-29 16:53] LABS: BACTERIA,URINE MOD /HPF (0-FEW); NITRITE,URINE NEG (NEG); RBC,URINE OCC /HPF (0-2); SQUAMOUS EPITHELIAL CELL,UR MOD /LPF; UROBILINOGEN,URINE 0.2 mg/dL (0.2 mg/dL)
[2020-01-29 16:54] LABS: TRICHOMONAS,URINE PRESENT
--- NOTE | 2020-01-29 17:27 | PHYS DOC ---
Past History Past Medical History: No Pertinent History, Other Additional Past Medical Histor: obesity Past Surgical History: , Other Additional Past Surgical Histo: ovarian cyst removal Smoking: Cigarettes Alcohol Use: None Drug Use: None Adult General Chief Complaint Chief Complaint: ABDOMINAL PAIN HPI HPI Patient is a 29-year-old female who presents to ER today for evaluation of right upper quadrant abdominal pain off and on for 3 weeks. Patient denies any fever, no nausea vomiting. Patient denies any chest pain, no trouble breathing. Nothing makes the pain worse or better. Patient says the pain comes off and on, sometimes sharp and stabbing in nature. Review of Systems Review of Systems Constitutional: Denies fever or chills [] Eyes: Denies change in visual acuity, redness, or eye pain [] HENT: Denies nasal congestion or sore throat [] Respiratory: Denies cough or shortness of breath [] Cardiovascular: No additional information not addressed in HPI [] GI: Positive for abdominal pain, no nausea, vomiting, bloody stools or diarrhea [] : Denies dysuria or hematuria [] Musculoskeletal: Denies back pain or joint pain [] Integument: Denies rash or skin lesions [] Neurologic: Denies headache, focal weakness or sensory changes [] Endocrine: Denies polyuria or polydipsia [] All other systems were reviewed and found to be within normal limits, except as documented in this note. Allergies Allergies Allergies Coded Allergies Type Severity Reaction Last Updated Verified morphine Allergy Intermediate gi problems 05/31/14 Yes hydrocodone Adverse Reaction Intermediate gi problems, HIVES 05/25/15 Yes Physical Exam Physical Exam Constitutional: Well developed, well nourished, no acute distress, non-toxic appearance. [] HENT: Normocephalic, atraumatic, bilateral external ears normal, oropharynx moist, no oral exudates, nose normal. [] Eyes: PERRLA, EOMI, conjunctiva normal, no discharge. [] Neck: Normal range of motion, no tenderness, supple, no stridor. [] Cardiovascular:Heart rate regular rhythm, no murmur [] Lungs & Thorax: Bilateral breath sounds clear to auscultation [] Abdomen: Bowel sounds normal, soft, There is tenderness to palpation in RUQ, no masses, no pulsatile masses. [] Skin: Warm, dry, no erythema, no rash. [] Back: No tenderness, no CVA tenderness. [] Extremities: No tenderness, no cyanosis, no clubbing, ROM intact, no edema. [] Neurologic: Alert and oriented X 3, normal motor function, normal sensory function, no focal deficits noted. [] Psychologic: Affect normal, judgement normal, mood normal. [] Current Patient Data Vital Signs Vital Signs Date Time Temp Pulse Resp B/P (MAP) Pulse Ox O2 Delivery O2 Flow Rate FiO2 01/29/20 15:14 98.7 101 18 160/108 (125) 98 Room Air Lab Results Laboratory Tests Test 01/29/20 15:50 01/29/20 16:10 01/29/20 16:14 Urine Collection Type Void Urine Color Yellow Urine Clarity Cloudy Urine pH 5.5 Urine Specific Barre 1.025 Urine Protein Neg (NEG-TRACE) Urine Glucose (UA) Neg mg/dL (NEG) Urine Ketones (Stick) Neg mg/dL (NEG) Urine Blood Neg (NEG) Urine Nitrite Neg (NEG) Urine Bilirubin Neg (NEG) Urine Urobilinogen Dipstick 0.2 mg/dL (0.2 mg/dL) Urine Leukocyte Esterase Small (NEG) Urine RBC Occ /HPF (0-2) Urine WBC 11-20 /HPF (0-4) Urine Squamous Epithelial Cells Mod /LPF Urine Bacteria Mod /HPF (0-FEW) Urine Trichomonas Present White Blood Count 12.8 x10^3/uL (4.0-11.0) H Red Blood Count 5.09 x10^6/uL (3.50-5.40) Hemoglobin 14.4 g/dL (12.0-15.5) Hematocrit 44.2 % (36.0-47.0) Mean Corpuscular Volume 87 fL (79-100) Mean Corpuscular Hemoglobin 28 pg (25-35) Mean Corpuscular Hemoglobin Concent 33 g/dL (31-37) Red Cell Distribution Width 14.4 % (11.5-14.5) Platelet Count 483 x10^3/uL (140-400) H Neutrophils (%) (Auto) 66 % (31-73) Lymphocytes (%) (Auto) 26 % (24-48) Monocytes (%) (Auto) 4 % (0-9) Eosinophils (%) (Auto) 3 % (0-3) Basophils (%) (Auto) 1 % (0-3) Neutrophils # (Auto) 8.5 x10^3uL (1.8-7.7) H Lymphocytes # (Auto) 3.3 x10^3/uL (1.0-4.8) Monocytes # (Auto) 0.6 x10^3/uL (0.0-1.1) Eosinophils # (Auto) 0.4 x10^3/uL (0.0-0.7) Basophils # (Auto) 0.1 x10^3/uL (0.0-0.2) Sodium Level 139 mmol/L (136-145) Potassium Level 3.9 mmol/L (3.5-5.1) Chloride Level 103 mmol/L (98-107) Carbon Dioxide Level 23 mmol/L (21-32) Anion Gap 13 (6-14) Blood Urea Nitrogen 16 mg/dL (7-20) Creatinine 0.8 mg/dL (0.6-1.0) Estimated GFR (Cockcroft-Gault) 85.4 BUN/Creatinine Ratio 20 (6-20) Glucose Level 87 mg/dL (70-99) Calcium Level 8.9 mg/dL (8.5-10.1) Total Bilirubin 0.5 mg/dL (0.2-1.0) Aspartate Amino Transferase (AST) 20 U/L (15-37) Alanine Aminotransferase (ALT) 25 U/L (14-59) Alkaline Phosphatase 63 U/L (46-116) Total Protein 7.7 g/dL (6.4-8.2) Albumin 3.4 g/dL (3.4-5.0) Albumin/Globulin Ratio 0.8 (1.0-1.7) L Lipase 138 U/L (73-393) POC Urine HCG, Qualitative hcg negative (Negative) EKG EKG [] Radiology/Procedures Radiology/Procedures [][address] [address] IMAGING REPORT Signed PATIENT: FORTINO BOWENUNT: [id number] : 1990 LOCATION: ER AGE: 29 SEX: F EXAM STATUS: REG ER ORD. PHYSICIAN: MALA ARECHIGA DO REASON: RUQ ABDOMINAL PAIN OFF AND ON FOR THREE WEEKS PROCEDURE: ABDOMEN LTD EXAM: Abdomen sonogram. HISTORY: Right upper quadrant pain. TECHNIQUE: Sonographic imaging of the abdomen was performed. COMPARISON: CT dated 03/10/2018. FINDINGS: The liver is enlarged. There is suspected mild hepatic steatosis. No focal hepatic lesion is seen. The bowel appears unremarkable. The common bile duct is normal in caliber. The right kidney, pancreas and inferior vena cava are unremarkable. IMPRESSION: 1. Hepatomegaly and suspected mild hepatic steatosis. 2. Otherwise, unremarkable abdomen sonogram. Electronically signed by: Promise Leblanc MD (01/29/2020 4:35 PM) [facility] DICTATED AND SIGNED BY: PROMISE LEBLANC MD DATE: 01/29/20 6715 CC: LOUIS MCALLISTER; MALA ARECHIGA DO ~ Course & Med Decision Making Course & Med Decision Making Pertinent Labs and Imaging studies reviewed. (See chart for details) [] Dragon Disclaimer Dragon Disclaimer This electronic medical record was generated, in whole or in part, using a voice recognition dictation system. Departure Departure: Impression: Primary Impression: Abdominal pain Additional Impressions: UTI (urinary tract infection) Trichomonal cystitis Disposition: HOME, SELF-CARE Condition: STABLE Referrals: LOUIS MCALLISTER (PCP) please follow up with your doctor next week Patient Instructions: Abdominal Pain, Trichomoniasis, Urinary Tract Infection Additional Instructions: Thank you for visiting our Emergency Department. We appreciate you trusting us with your care. If any additional problems come up don't hesitate to return to visit us. Please follow up with your primary care provider so they can plan additional care if needed and know about the problem that you had. If symptoms worsen come back to the Emergency Department. Any concerning symptoms that start such as chest pain, shortness of air, weakness or numbness on one side of the body, running high fevers or any other concerning symptoms return to the ER. Scripts Sulfamethoxazole/Trimethoprim (BACTRIM 400-80 MG TABLET) 1 Each Tablet 1 TAB PO BID for UTI for 7 Days, #14 TAB 0 Refills Prov: MALA ARECHIGA DO 01/29/20 Metronidazole (FLAGYL) 500 Mg Tablet 1 TAB PO BID for TRICHOMINIASIS, #14 TAB Prov: MALA ARECHIGA DO 01/29/20 Problem Qualifiers MALA ARECHIGA DO Jan 29, 2020 17:27
[2020-01-29] MEDS ORDERED: METR500T PO (17:52)
[2020-01-29] MEDS ORDERED: SULF1TAB23 PO (17:52)
[2020-01-29 18:01] VITALS: BP 136/88
== END 2020-01-29 18:00 | disposition home or self-care (01) ==
LOC: ER 15:04
DX: N39.0 Urinary tract infection, site not specified (principal); A59.03 Trichomonal cystitis and urethritis; F17.210 Nicotine dependence, cigarettes, uncomplicated; E66.9 Obesity, unspecified; Z68.33 Body mass index [BMI] 33.0-33.9, adult; Z98.890 Other specified postprocedural states; Z88.5 Allergy status to narcotic agent
CPT/HCPCS: 36415; 76705; 80053; 81001; 81025; 83690; 85025; 87086; 99284

== ENCOUNTER 2022-01-13 19:35 | Emergency (ER) | payer OTHER ==
[~2022-01-13] VITALS: Ht 157.5 cm; Wt 146.6 kg
[~2022-01-13 19:35] MED LIST changes: +METR500T PO; +SULF1TAB23 PO
[2022-01-13] MEDS ORDERED: DEXAMETHASONE 4 MG TABLET PO ONE (20:15)
--- NOTE | 2022-01-13 20:29 | PHYS DOC ---
Past History Past Medical History: Asthma, Other Additional Past Medical Histor: obesity Past Surgical History: , Other Additional Past Surgical Histo: ovarian cyst removal Smoking: Cigarettes, Quit Less Than 1 Year Alcohol Use: None Drug Use: None General Adult EDM: Chief Complaint: SHORTNESS OF BREATH HPI: HPI: Patient is a 31 year old female who presents with shortness of breath the last two days. She states that three weeks ago she was diagnosed with a URI when she started having a productive cough and congestion so she was started on prednisone and doxycycline with improvement of symptoms. She states that two days ago her shortness of breath started to worsen and had a clear productive cough with nasal drainage. She denies any fevers/chills, chest pain, sore throat, headaches or n/v. She states that any activity makes the shortness of breath worse. She took two breathing treatments at home with no improvement. She denies any sick contacts and has not had any COVID exposures. She has a hx of asthma but has not been hospitalized in the past for asthma. Review of Systems: Review of Systems: Constitutional: Denies fever or chills Eyes: Denies redness or eye pain HENT: Denies sore throat, reports nasal congestion Respiratory: Reports cough and shortness of breath Cardiovascular: Denies chest pain or palpitations GI: Denies abdominal pain, nausea, or vomiting : Denies dysuria or hematuria Musculoskeletal: Denies back pain or joint pain Integument: Denies rash or skin lesions Neurologic: Denies headache, focal weakness or sensory changes Complete systems were reviewed and found to be within normal limits, except as documented in this note. Current Medications: Current Meds: Current Medications Medications (Trade) Dose Ordered Sig/Rekha Start Time Stop Time Status Last Admin Dose Admin Dexamethasone (Decadron) 10 mg 1X ONCE 01/13/22 20:15 01/13/22 20:18 DC Allergies: Allergies: Allergies Coded Allergies Type Severity Reaction Last Updated Verified morphine Allergy Intermediate gi problems 01/13/22 Yes hydrocodone Adverse Reaction Intermediate gi problems, HIVES 01/13/22 Yes Physical Exam: PE: Constitutional: Well developed, obese, no acute distress, non-toxic appearance HENT: Normocephalic, atraumatic, normal oropharynx, normal nasal turbinates Eyes: Conjunctiva normal, no discharge Neck: Normal range of motion, no tenderness, supple Lungs & Thorax: No respiratory distress, equal chest rise and fall; no wheezing or rales Heart: Normal rate and rhythm; no murmurs Abdomen: Soft, no tenderness Skin: Warm, dry, no erythema, no rash Extremities: No tenderness, ROM intact, no edema Neurologic: Alert and oriented X 3, normal motor function, normal sensory function, no focal deficits noted Psychologic: Affect normal, judgment normal Current Patient Data: Vital Signs: Vital Signs Date Time Temp Pulse Resp B/P (MAP) Pulse Ox O2 Delivery O2 Flow Rate FiO2 01/13/22 19:40 97.9 87 18 152/113 (126) 96 Room Air EKG: EKG: [] Radiology/Procedures: Radiology/Procedures: PROCEDURE: CHEST AP ONLY XR CHEST 1V History: Reason: cough / Spl. Instructions: / History: Comparison: None. Findings: No consolidation or pleural effusion. Normal heart size. No pneumothorax. Impression: 1. No acute cardiopulmonary process. Electronically signed by: Jhoan Cooley DO (01/13/2022 8:33 PM) [facility] Heart Score: C/O Chest Pain: N/A Course & Med Decision Making: Course & Med Decision Making Pertinent Labs and Imaging studies reviewed. (See chart for details) Patient presents with HPI and physical exam consistent for acute bronchitis. Cannot exclude COVID-19. Rapid COVID-19 and rapid influenza negative. Symptomatic treatment provided. Chest x-ray without acute process. Patient stable for discharge with outpatient follow-up with PCP. Discussed findings and plan with patient, who acknowledges understanding and agreement. COVID-19 CRITERIA: The patient was evaluated during the global COVID-19 pandemic, and that diagnosis was suspected/considered upon their initial presentation. Their evaluation, treatment and testing was consistent with current guidelines for patients who present with complaints or symptoms that may be related to COVID-19. Dragon Disclaimer: Dragon Disclaimer: This electronic medical record was generated, in whole or in part, using a voice recognition dictation system. Departure Departure: Impression: Primary Impression: Bronchitis Disposition: HOME / SELF CARE / HOMELESS Condition: STABLE Referrals: PCP,NO (PCP) Patient Instructions: Acute Bronchitis, [id number], Incentive Spirometer Scripts Guaifenesin/Codeine Phosphate (Codeine-Guaifen 10-100 mg/5 ml) 120 Ml Liquid 10 ML PO PRN Q6HRS PRN for cough and congestion MDD 20 Milliliter(s), #240 ML 0 Refills Prov: KULWANT OSBORNE DO 01/13/22 Prednisone (PREDNISONE) 20 Mg Tablet 2 TAB PO DAILY for Bronchitis for 4 Days, #8 TAB Prov: KULWANT OSBORNE DO 01/13/22 COVID-19 Assessment COVID-19 Patient Risks: Age 65 or older: No Sign of co-morbidity: No Exp to person + for COVID: No Exp to PUI: No Travel from affected area: No Lower respiratory symptoms: Yes Fever: No Other: Yes PPE Use: Full PPE with N95 mask or PAPR: Yes KULWANT OSBORNE DO Jan 13, 2022 20:29
--- NOTE | 2022-01-13 20:35 | RAD ---
XR CHEST 1V History: Reason: cough / Spl. Instructions: / History: Comparison: None. Findings: No consolidation or pleural effusion. Normal heart size. No pneumothorax. Impression: 1. No acute cardiopulmonary process. Electronically signed by: Jhoan Cooley DO (01/13/2022 8:33 PM) [facility] [place]
[2022-01-13 20:36] VITALS: BP 173/98
[2022-01-13] MEDS ORDERED: GUAI120L35 PO (21:10)
[2022-01-13] MEDS ORDERED: PRED20TA PO (21:10)
[2022-01-13 21:18] LABS: INFLUENZA A PATIENT NEGATIVE (NEGATIVE); INFLUENZA B PATIENT NEGATIVE (NEGATIVE)
== END 2022-01-13 21:23 | disposition home or self-care (01) ==
LOC: ER 19:35
DX: J45.909 Unspecified asthma, uncomplicated (principal); E66.9 Obesity, unspecified; Z20.822 Contact with and (suspected) exposure to COVID-19; Z68.43 Body mass index [BMI] 50.0-59.9, adult; Z87.891 Personal history of nicotine dependence; Z88.5 Allergy status to narcotic agent
CPT/HCPCS: 71045; 87428; 99284; C9803; J8540; U0003

== ENCOUNTER 2022-01-25 15:54 | Emergency (ER) | payer OTHER ==
[~2022-01-25] VITALS: Ht 162.6 cm; Wt 149.0 kg
[~2022-01-25 15:54] MED LIST changes: +GUAI120L35 PO; +PRED20TA PO
[2022-01-25] MEDS ORDERED: IPRATRPIUM/ALBUTEROL 0.5/2.5MG 3 ML NEBU. NEB ONE ×2 (16:15)
[2022-01-25] MEDS ORDERED: predniSONE 20 MG TABLET PO ONE (16:15)
--- NOTE | 2022-01-25 16:19 | PHYS DOC ---
Past History Past Medical History: Asthma, Other Additional Past Medical Histor: obesity Past Surgical History: , Other Additional Past Surgical Histo: ovarian cyst removal Smoking: Cigarettes, Quit Less Than 1 Year Alcohol Use: None Drug Use: None General Adult EDM: Chief Complaint: SHORTNESS OF BREATH HPI: HPI: Patient is a 31-year-old female coming in for cough and shortness of breath. Patient is up intermittent but has been worse today. Usually working was exposed to some dust on a shelf, she [place] inhaler twice. Last used her nebulizer yesterday. States she was diagnosed with COVID-19 about 2 weeks ago. She is initially getting better but has started getting worse. Was vaccinated with Moderna in October. Patient states she quit smoking 8 months ago, quit vaping 2 months ago. Has had cough productive of yellow phlegm. Denies any fevers, vomiting or diarrhea. Review of Systems: Review of Systems: All other systems within normal limits except for as noted in the HPI Current Medications: Current Meds: Current Medications Medications (Trade) Dose Ordered Sig/Rekha Start Time Stop Time Status Last Admin Dose Admin Albuterol/ Ipratropium (Duoneb) 3 ml 1X ONCE 01/25/22 16:15 01/25/22 16:16 UNV Prednisone (Prednisone) 60 mg 1X ONCE 01/25/22 16:15 01/25/22 16:16 UNV Allergies: Allergies: Allergies Coded Allergies Type Severity Reaction Last Updated Verified morphine Allergy Intermediate gi problems 01/13/22 Yes hydrocodone Adverse Reaction Intermediate gi problems, HIVES 01/13/22 Yes Physical Exam: PE: Constitutional: Well developed, well nourished, no acute distress, non-toxic appearance. [] HENT: Normocephalic, atraumatic, bilateral external ears normal, nose normal. [] Eyes: PERRLA, conjunctiva normal, no discharge. [] Neck: No rigidity, supple, no stridor. [] Cardiovascular: Regular rate and rhythm, brisk cap refill [] Lungs & Thorax: Non labored symmetric respirations, no tachypnea or respiratory distress, frequent coughing, bilateral end expiratory wheezing [] Abdomen: Soft, nondistended. Skin: Warm, dry, no erythema, no rash. [] Back: Unremarkable Extremities: No deformities, range of motion grossly intact, no lower extremity edema [] Neurologic: Alert and oriented X 3, no focal deficits noted. [] Psychologic: Affect normal, judgement normal, mood normal. [] EKG: EKG: [] Radiology/Procedures: Radiology/Procedures: [][address] [id number] IMAGING REPORT Signed PATIENT: FORTINO BOWEN RACCOUNT: [id number] : 1990 LOCATION: ER AGE: 31 SEX: F EXAM STATUS: REG ER ORD. PHYSICIAN: BENITO BOWEN MD REASON: COUGH, SHORTNESS OF BREATH X 1 MONTHS PROCEDURE: CHEST PA & LATERAL Chest radiograph 01/25/2022 4:33 PM INDICATION: Cough and shortness of breath COMPARISON: 01/13/2022 TECHNIQUE: Frontal and lateral views of the chest are provided. FINDINGS: The cardiomediastinal silhouette is within normal limits. There are no pleural effusions. There is no pulmonary vascular congestion. There is no pneumothorax. New patchy opacity identified within the right hilar distribution which may represent pneumonitis of infectious/inflammatory etiology. No significant osseous abnormality is identified. IMPRESSION: New patchy opacity identified within the right hilar distribution which may represent pneumonitis of infectious/inflammatory etiology. Electronically signed by: Jenae Ramirez MD (01/25/2022 5:03 PM) [facility] DICTATED AND SIGNED BY: JENAE RAMIREZ MD DATE: 01/25/22 1863 CC: BENITO BOWEN MD; PCP,NO ~ Heart Score: C/O Chest Pain: No Risk Factors: Risk Factors: DM, Current or recent (<one month) smoker, HTN, HLP, family history of CAD, obesity. Risk Scores: Score 0 - 3: 2.5% MACE over next 6 weeks - Discharge Home Score 4 - 6: 20.3% MACE over next 6 weeks - Admit for Clinical Observation Score 7 - 10: 72.7% MACE over next 6 weeks - Early Invasive Strategies Course & Med Decision Making: Course & Med Decision Making Pertinent Labs and Imaging studies reviewed. (See chart for details) [] Dragon Disclaimer: Dragon Disclaimer: This electronic medical record was generated, in whole or in part, using a voice recognition dictation system. Departure Departure: Impression: Primary Impression: Asthma exacerbation Additional Impression: Pneumonia Disposition: HOME / SELF CARE / HOMELESS Condition: STABLE Referrals: PCP,ERLINDA (PCP) Patient Instructions: Pneumonia, Adult Scripts Prednisone (PREDNISONE) 50 Mg Tablet 1 TAB PO DAILY for steroid for 4 Days, #4 TAB You received this medication in the emergency room today. You will starting your next dose tomorrow. Prov: BENITO BOWEN MD 01/25/22 Guaifenesin/Codeine Phosphate (GUAIFENESIN-CODEINE SYRUP) 118 Ml Liquid 5 ML PO Q6HRS for cough, #120 ML Prov: BENITO BOWEN MD 01/25/22 Amoxicillin/Potassium Clav (AMOX TR-K CLV 875-125 MG TAB) 1 Each Tablet 1 TAB PO BID for antibiotic for 7 Days, #14 TAB Prov: BENITO BOWEN MD 01/25/22 BENITO BOWEN MD Jan 25, 2022 16:19
--- NOTE | 2022-01-25 17:05 | RAD ---
Chest radiograph 01/25/2022 4:33 PM INDICATION: Cough and shortness of breath COMPARISON: 01/13/2022 TECHNIQUE: Frontal and lateral views of the chest are provided. FINDINGS: The cardiomediastinal silhouette is within normal limits. There are no pleural effusions. There is no pulmonary vascular congestion. There is no pneumothorax. New patchy opacity identified within the right hilar distribution which may represent pneumonitis of infectious/inflammatory etiology. No significant osseous abnormality is identified. IMPRESSION: New patchy opacity identified within the right hilar distribution which may represent pneumonitis of infectious/inflammatory etiology. Electronically signed by: Jackelyn Rockwell MD (01/25/2022 5:03 PM) [facility]
[2022-01-25 17:15] VITALS: BP 154/92
[2022-01-25] MEDS ORDERED: PRED50TA PO (17:16)
[2022-01-25] MEDS ORDERED: GUAI118L13 PO (17:16)
[2022-01-25] MEDS ORDERED: AMOX1TAB11 PO (17:16)
== END 2022-01-25 17:25 | disposition home or self-care (01) ==
LOC: ER 15:54
DX: J45.901 Unspecified asthma with (acute) exacerbation (principal); J18.9 Pneumonia, unspecified organism; Z87.891 Personal history of nicotine dependence; Z88.5 Allergy status to narcotic agent
CPT/HCPCS: 71046; 94640; 99284; J7512